=== PATIENT | male | born 1935 | race Caucasian/White ===

== ENCOUNTER 2017-10-16 15:34 | Emergency (ER) | payer MEDICARE ==
--- NOTE | 2017-10-16 15:56 | EDM.PDOC ---
ED HPI GENERAL MEDICAL PROBLEM - General Chief Complaint: Abdominal Pain Stated Complaint: abdominal pain Time Seen by Provider: 10/16/17 15:45 Source of Information: Reports: Patient, [facility]way Records (Limited), Other ( Limited records from [facility] [place]). Denies: Old Records History Limitations: Reports: Altered Mental Status - History of Present Illness INITIAL COMMENTS - FREE TEXT/NARRATIVE: The patient was brought to the emergency room via wheelchair from [facility] [place] after brief evaluation in that clinic. He was evaluated by SHWETA Stout, from [facility] [place] in [place], who is requesting further emergency room evaluation secondary to suspected bowel obstruction. The patient is an extremely poor historian secondary to his baseline organic brain syndrome, which is stable by history. He apparently has not had a bowel movement for about 3 days with previous nonspecific abdominal pain, which he currently denies? No apparent recent history of chest pain, heart flutter, dizziness, orthostasis, or other anginal-type symptoms. No recent history of heartburn, nausea, diarrhea, melena , gross hematochezia, or any food intolerance, including fatty foods, etc.. The patient also denies any recent fever, cough, wheezing, dyspnea, etc.. Onset: Gradual Duration: Day(s): (3 days?), Getting Worse Location: Reports: Abdomen. Denies: Head, Face, Neck, Chest, Back, Pelvis, Radiates to Quality: Reports: Same as Previous Episode Severity: Mild Improves with: Reports: None Worsens with: Reports: None Context: Reports: Other (As above). Denies: Sick Contact Associated Symptoms: Reports: Confusion (Stable baseline as above). 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: Other (see below) (None) Abdomen Pain Score (Numeric/FACES): 1 - Related Data Allergies Allergy/AdvReac Type Severity Reaction Status Date / Time No Known Allergies Allergy Verified 10/16/17 15:36 Home Meds: Home Meds Acetaminophen [Tylenol] 2 tab PO ASDIRECTED PRN 10/16/17 [History] Bisacodyl [Dulcolax] 5 mg PO ASDIRECTED PRN 10/16/17 [History] Cyanocobalamin (Vitamin B12) [Vitamin B13] 2 tab PO DAILY 10/16/17 [History] Dextran 70/Hypromellose [Artificial Tears] 1 each OP BID 10/16/17 [History] Dextran 70/Hypromellose/PF [Artificial Tears Drops] 1 each OP ASDIRECTED PRN 08/29 [History] Furosemide [Lasix] 20 mg PO DAILY 10/16/17 [History] Loperamide HCl [Imodium A-D] 2 mg PO ASDIRECTED PRN 10/16/17 [History] Memantine HCl [Namenda] 5 mg PO BID 10/16/17 [History] Multivitamin [Daily Multiple Vitamin] 1 tab PO DAILY 10/16/17 [History] Non-Formulary Medication [NF Drug] 30 ml PO Q12HR PRN 10/16/17 [History] Potassium Chloride [Klor-Con 10] 1 tab PO BID 10/16/17 [History] Sertraline [Zoloft] 2 tab PO DAILY 10/16/17 [History] buPROPion [buPROPion XL] 150 mg PO DAILY 10/16/17 [History] Past Medical History Cardiovascular History: Reports: Hypertension, Other (See Below) Other Cardiovascular History: Orthostatic hypotension Respiratory History: Reports: COPD, Intubation, Previous, Other (See Below). Denies: Intubation, Difficult Other Respiratory History: Radius history of pulmonary nodules in the right upper lobe 2 in in size between 1.3 and 1.5 cm. Gastrointestinal History: Reports: Chronic Constipation, Colon Polyp, Diverticulosis, Jaundice, Other (See Below) Other Gastrointestinal History: History of nonspecific jaundice Genitourinary History: Reports: BPH, Chronic Renal Insuffiency, Diabetic Nephropathy, Retention, Urinary, Urinary Incontinence, UTI, Recurrent Musculoskeletal History: Reports: Arthritis, Back Pain, Chronic, Osteoarthritis , Osteoporosis Neurological History: Reports: Alzheimers Disease, CVA, Other (See Below) Other Neuro History: Organic brain syndromevascular dementiamoderate. Nontraumatic cerebral hemorrhage/CVA. Psychiatric History: Reports: Anxiety, Depression, Emotional Problems Endocrine/Metabolic History: Reports: Diabetes, Type II, Obesity/BMI 30+. 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 - Infectious Disease History Infectious Disease History: Reports: MRSA - Past Surgical History HEENT Surgical History: Reports: Oral Surgery, Other (See Below) Other HEENT Surgeries/Procedures: Complete teeth extraction Musculoskeletal Surgical History: Reports: Knee Replacement Social & Family History - Family History Family Medical History: Unobtainable - Tobacco Use Smoking Status *Q: Unknown Ever Smoked - Living Situation & Occupation Living situation: Reports: Extended Care Facility ([facility]) ED ROS GENERAL - Review of Systems Review Of Systems: Unable To Obtain ED EXAM, GI/ABD - Physical Exam Exam: See Below Exam Limited By: Altered Mental Status General Appearance: Alert, No Apparent Distress Eyes: Right: Normal Appearance (No nystagmus. Patient is wearing glasses.), Bilateral: EOMI (PERRLA) Ears: Normal External Exam, Normal Canal, Hearing Grossly Normal, Normal TMs Nose: Normal Inspection, Normal Mucosa, No Blood Throat/Mouth: Normal Lips, Normal Gums, Normal Oropharynx, Normal Voice, No Airway Compromise. No: Normal Teeth (Complete dentures uppers and lowers), Dysphagia, Perioral Cyanosis Head: Atraumatic, Normocephalic. No: Facial Swelling, Facial Tenderness, Sinus Tenderness Neck: Supple, Non-Tender, Full Range of Motion, Carotid Bruit (Bilateral carotid bruitsmild). No: Lymphadenopathy (L), Lymphadenopathy (R), Thyromegaly Respiratory/Chest: No Respiratory Distress, Lungs Clear, Normal Breath Sounds, No Accessory Muscle Use, Chest Non-Tender. No: Pleural Rub, Retractions Cardiovascular: Normal Peripheral Pulses, Regular Rate, Rhythm, No Edema, No Gallop, No JVD, No Murmur, No Rub. No: Gallop/S3, Gallop/S4, Friction Rub GI/Abdominal Exam: No Abnormal Bruit, No Mass, Pelvis Stable, Distended ( Moderate), Tender (Mild diffuse palpation pain), Abnormal Bowel Sounds ( Moderate diffuse increased bowel sounds high-pitched in nature). No: Guarding, Rebound, Hernia (Male) Exam: Deferred Rectal (Males) Exam: Normal Rectal Tone, BPH (Moderate), Heme - Stool, Hemorrhoids (Grade 2 internal/external with moderate perirectal dermatitis/ erythema), Tenderness (No Eric space tenderness). No: Fecal Impaction ( Limited stool in rectal vault) Back Exam: Normal Inspection, Full Range of Motion. No: CVA Tenderness (L), CVA Tenderness (R), Muscle Spasm Extremities: Normal Inspection, Normal Range of Motion, Non-Tender, No Pedal Edema, Normal Capillary Refill. No: Evi's Sign Neurological: Alert, Normal Reflexes (Negative Babinski's), No Motor/Sensory Deficits, Confused (Stable moderate) Psychiatric: Normal Affect, Normal Mood Skin Exam: Erythema (Re: Rectal as above). No: Diaphoretic, Lymphangitis, Wound /Incision Lymphatic: No Adenopathy Course - Vital Signs Last Recorded V/S: Last Vital Signs Temp 36.3 C 10/16/17 17:24 Pulse 59 L 10/16/17 19:02 Resp 16 10/16/17 19:02 BP 157/63 H 10/16/17 19:02 Pulse Ox 95 10/16/17 19:02 Vital Signs - 24 hr 10/16/17 10/16/17 10/16/17 15:40 15:45 17:24 Temperature [ 36.4 C 36.6 C 36.3 C Oral] Pulse, 60 57 L 58 L Peripheral [ Left Pulse Oximetry] Respiratory 18 18 18 Rate Blood Pressure [Left Upper Arm ] Blood Pressure 149/71 H 168/70 H 156/70 H [Right Upper Arm] O2 Sat by Pulse 92 L 94 L 95 Oximetry 10/16/17 19:02 Temperature [ Oral] Pulse, 59 L Peripheral [ Left Pulse Oximetry] Respiratory 16 Rate Blood Pressure 157/63 H [Left Upper Arm ] Blood Pressure [Right Upper Arm] O2 Sat by Pulse 95 Oximetry - Orders/Labs/Meds Orders: Active Orders 24 hr Category Date Time Status Cardiac Monitoring [RC] . DIRECTED Care 10/16/17 19:15 Active Peripheral IV Care [RC] . DIRECTED Care 10/16/17 17:39 Active Abdomen Pelvis w Cont [CT] Stat Exams 10/16/17 15:56 Taken OCCULT BLOOD DIAGNOSTIC [OP] Stat Lab 10/16/17 16:24 Ordered Lactated Ringers [Ringers, Lactated] 1,000 ml Med 10/16/17 19:30 Active IV ASDIRECTED Sodium Chloride 0.9% [Saline Flush] Med 10/16/17 17:39 Active 10 ml FLUSH ASDIRECTED PRN cefTRIAXone [Rocephin] 1 gm Med 10/16/17 17:45 Active Sodium Chloride 0.9% [Normal Saline] 100 ml IV Q12H metroNIDAZOLE/Normal Saline [Flagyl 500 MG in NS 100 ML Med 10/16/17 17:45 Active ] 500 mg Premix Bag 1 bag IV Q8H Peripheral IV Insertion Adult [OM.PC] Routine Oth 10/16/17 17:39 Ordered Resuscitation Status Routine Resus Stat 10/16/17 19:08 Ordered Medication Orders Ceftriaxone Sodium 1 gm/ (Sodium Chloride) 100 mls @ 200 mls/hr IV Q12H LEONOR Last Admin: 10/16/17 18:35 Dose: 200 mls/hr Metronidazole 500 mg/ Premix 100 mls @ 100 mls/hr IV Q8H LEONOR Last Admin: 10/16/17 19:14 Dose: 100 mls/hr Lactated Ringer's (Ringers, Lactated) 1,000 mls @ 100 mls/hr IV ASDIRECTED LEONOR Last Admin: 10/16/17 20:16 Dose: 100 mls/hr Sodium Chloride (Saline Flush) 10 ml FLUSH ASDIRECTED PRN PRN Reason: Keep Vein Open Last Admin: 10/16/17 20:18 Dose: 10 ml Admin: 10/16/17 19:15 Dose: 10 ml Admin: 10/16/17 18:36 Dose: 10 ml Admin: 10/16/17 18:29 Dose: 10 ml Labs: Laboratory Tests 10/16/17 Range/Units 13:50 Amylase 35 (25-115) U/L Lipase 171 (73-393) U/L CBC ordered by [facility] normal with WBCs 6.6, hemoglobin 12.5, MCV 89.9, and platelets of 167. Comprehensive metabolic panel ordered by [facility] [place] was also normal with exception of elevated random glucose of 122, BUN 16, and creatinine of 1.24 with normal sodium of 138 and potassium of 3.9. Microbiology 10/16/17 16:24 Stool Occult Blood (ESTUARDO) - Final Stool / Feces NEGATIVE OCCULT BLOOD Meds: Medications Generic Name Dose Route Start Last Admin Trade Name Freq PRN Reason Stop Dose Admin Ceftriaxone Sodium 1 gm/ 100 mls @ 200 mls/hr 10/16/17 17:45 10/16/17 18:35 Sodium Chloride IV 200 mls/hr Q12H LEONOR Administration Metronidazole 500 mg/ Premix 100 mls @ 100 mls/hr 10/16/17 17:45 10/16/17 19: 14 IV 100 mls/hr Q8H LEONOR Administration Lactated Ringer's 1,000 mls @ 100 mls/hr 10/16/17 19:30 10/16/17 20:16 Ringers, Lactated IV 100 mls/hr ASDIRECTED LEONOR Administration Sodium Chloride 10 ml 10/16/17 17:39 10/16/17 20:18 Saline Flush FLUSH 10 ml ASDIRECTED PRN Administration Keep Vein Open Discontinued Medications Generic Name Dose Route Start Last Admin Trade Name Zackaryq PRN Reason Stop Dose Admin Iopamidol 100 ml 10/16/17 17:30 10/16/17 18:28 Isovue-300 (61%) IVPUSH 10/16/17 17:31 100 ml ONETIME ONE Administration - Radiology Interpretation Free Text/Narrative:: radiation monitor shows heart rate in the high 50s to 60s with no ectopy or arrhythmia X-ray report of dominant will x-rays, flat and upright, which were ordered by [facility] [place], shows evidence of significant dilated sigmoid colon with multiple air- fluid levels consistent with obstruction and possible volvulus with recommended CT. No evidence of free air despite my initial suspicions during my initial evaluation. Telephone consultation at 18:55 hours with the radiology department at [facility] in [place]. Preliminary verbal report of CT scan of the abdomen and pelvis with both IV and oral contrast. CT scan confirms volvulus with severe secondary obstruction, however no free air, etc. Incidental finding of new 2.3 cm in diameter pulmonary nodule in the right middle lobe. CT Results Date: 10/16/17 CT Results Time: 18:53 Departure - Departure Time of Disposition: 20:55 Disposition: DC/Tfer to Acute Hospital 02 Condition: Poor Clinical Impression: Confusion, Chronic renal insufficiency, stage III (moderate), Vitamin B 12 deficiency, Mixed anxiety depressive disorder, Pulmonary nodules, Need for comfort care Hypertension Qualifiers: Hypertension type: essential hypertension Qualified Code(s): I10 - Essential ( primary) hypertension Bowel obstruction Qualifiers: Intestinal obstruction type: unspecified Intestinal obstruction extent: partial Qualified Code(s): K56.600 - Partial intestinal obstruction, unspecified as to cause Osteoarthritis Qualifiers: Osteoarthritis location: multiple joints Osteoarthritis type: primary Qualified Code(s): M15.0 - Primary generalized (osteo)arthritis Diabetes mellitus Qualifiers: Diabetes mellitus type: type 2 Diabetes mellitus residential insulin use: without residential use Diabetes mellitus complication status: with kidney complications Diabetes mellitus complication detail: with chronic kidney disease Chronic kidney disease stage: stage 3 (moderate) Qualified Code(s): E11.22 - Type 2 diabetes mellitus with diabetic chronic kidney disease CVA (cerebral vascular accident) Qualifiers: CVA mechanism: other Qualified Code(s): I63.8 - Other cerebral infarction - Discharge Information Referrals: Akua Evans NP [Primary Care Provider] - Forms: ED Department Discharge, Interfacility Transfer EMTALA - Problem List & Annotations (1) Bowel obstruction SNOMED Code(s): 85849272 Code(s): K56.609 - UNSP INTESTNL OBST, UNSP TO PARTIAL VERSUS COMPLETE OBST Status: Acute Priority: High Current Visit: Yes Onset Date: ~ Annotation/Comment:: Volvulus of severe bowel obstruction by CT scan as above. Initial telephone consultation with the patient's cousin, guardian, and POA, Ruba at [phone], at 19:00 hours obtaining permission for hospital transfer to [place] with his POA requesting transfer to [facility]. Subsequent telephone consultation at 19:05 and 19:20 hours with [facility] in [place] with , general surgeon, accepting the patient for direct admission, with no further treatment recommendations. Ambulance transfer with export documents clerk accompaniment. 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 Qualifiers: CVA mechanism: other Qualified Code(s): I63.8 - Other cerebral infarction (3) Chronic renal insufficiency, stage III (moderate) SNOMED Code(s): 661088612 Code(s): N18.3 - CHRONIC KIDNEY DISEASE, STAGE 3 (MODERATE) Status: Chronic Priority: Medium Current Visit: Yes Annotation/Comment:: Continue to observe closely with known diabetic nephropathy (4) Confusion SNOMED Code(s): 661030060 Code(s): R41.0 - DISORIENTATION, UNSPECIFIED Status: Chronic Priority: Medium Current Visit: Yes Annotation/Comment:: Stable by history (5) Diabetes mellitus SNOMED Code(s): 78275873 Code(s): E11.9 - TYPE 2 DIABETES MELLITUS WITHOUT COMPLICATIONS Status: Chronic Priority: Medium Current Visit: Yes Annotation/Comment:: Continue to observe closely by accepting providers and regular physicians. Qualifiers: Diabetes mellitus type: type 2 Diabetes mellitus child care assistant insulin use: without residential use Diabetes mellitus complication status: with kidney complications Diabetes mellitus complication detail: with chronic kidney disease Chronic kidney disease stage: stage 3 (moderate) Qualified Code(s): E11.22 - Type 2 diabetes mellitus with diabetic chronic kidney disease; N18.3 - Chronic kidney disease, stage 3 (moderate) (6) Hypertension SNOMED Code(s): 32107063 Code(s): I10 - ESSENTIAL (PRIMARY) HYPERTENSION Status: Chronic Priority : Medium Current Visit: Yes Annotation/Comment:: Blood Pressures stable in the emergency room. Qualifiers: Hypertension type: essential hypertension Qualified Code(s): I10 - Essential (primary) hypertension (7) Osteoarthritis SNOMED Code(s): 365523909 Code(s): M19.90 - UNSPECIFIED OSTEOARTHRITIS, UNSPECIFIED SITE Status: Chronic Priority: Medium Current Visit: Yes Annotation/Comment:: Stable by history Qualifiers: Osteoarthritis location: multiple joints Osteoarthritis type: primary Qualified Code(s): M15.0 - Primary generalized (osteo)arthritis (8) Vitamin B 12 deficiency SNOMED Code(s): 521516565 Code(s): E53.8 - DEFICIENCY OF OTHER SPECIFIED B GROUP VITAMINS Status: Chronic Priority: Medium Current Visit: Yes Annotation/Comment:: Currently under therapy (9) Mixed anxiety depressive disorder SNOMED Code(s): 614125309 Code(s): F41.8 - OTHER SPECIFIED ANXIETY DISORDERS Status: Chronic Priority: Medium Current Visit: Yes Annotation/Comment:: Stable by history (10) Need for comfort care SNOMED Code(s): 622111667 Code(s): XRI4449 - Status: Chronic Priority: Medium Current Visit: Yes Annotation/Comment:: Note code status of the patient confirmed today with his POA as above. No aggressive measures including only limited CPR, limited intubation, and limited electrocardioversion. (11) Pulmonary nodules SNOMED Code(s): 022765589 Code(s): R91.8 - OTHER NONSPECIFIC ABNORMAL FINDING OF LUNG FIELD Status: Acute Priority: High Current Visit: Yes Annotation/Comment:: Progressive pulmonary nodules by CT scan today as above. Per his POA no further aggressive workup or treatment at this time. Long-term prognosis poor. Consider possibility of metastatic disease with unknown primary, etc. - Problem List Review Problem List Initiated/Reviewed/Updated: Yes - My Orders Last 24 Hours: My Active Orders 10/16/17 15:56 Abdomen Pelvis w Cont [CT] Stat 10/16/17 16:24 OCCULT BLOOD DIAGNOSTIC [OP] Stat 10/16/17 17:39 Peripheral IV Care [RC] . DIRECTED Sodium Chloride 0.9% [Saline Flush] 10 ml FLUSH ASDIRECTED PRN Peripheral IV Insertion Adult [OM.PC] Routine 10/16/17 17:45 cefTRIAXone [Rocephin] 1 gm Sodium Chloride 0.9% [Normal Saline] 100 ml IV Q12H metroNIDAZOLE/Normal Saline [Flagyl 500 MG in NS 100 ML] 500 mg Premix Bag 1 bag IV Q8H 10/16/17 19:08 Resuscitation Status Routine 10/16/17 19:15 Cardiac Monitoring [RC] . DIRECTED 10/16/17 19:30 Lactated Ringers [Ringers, Lactated] 1,000 ml IV ASDIRECTED - Assessment/Plan Last 24 Hours: My Active Orders 10/16/17 15:56 Abdomen Pelvis w Cont [CT] Stat 10/16/17 16:24 OCCULT BLOOD DIAGNOSTIC [OP] Stat 10/16/17 17:39 Peripheral IV Care [RC] . DIRECTED Sodium Chloride 0.9% [Saline Flush] 10 ml FLUSH ASDIRECTED PRN Peripheral IV Insertion Adult [OM.PC] Routine 10/16/17 17:45 cefTRIAXone [Rocephin] 1 gm Sodium Chloride 0.9% [Normal Saline] 100 ml IV Q12H metroNIDAZOLE/Normal Saline [Flagyl 500 MG in NS 100 ML] 500 mg Premix Bag 1 bag IV Q8H 10/16/17 19:08 Resuscitation Status Routine 10/16/17 19:15 Cardiac Monitoring [RC] . DIRECTED 10/16/17 19:30 Lactated Ringers [Ringers, Lactated] 1,000 ml IV ASDIRECTED Assessment:: As above Plan: As above. Extensive precautions were given to the patient and his POA, who are in agreement with the treatment plan. Ambulance transfer with export documents clerk accompaniment.
[2017-10-16] MEDS ORDERED: Iopamidol 612 MG/ML 100 ML Bottle IVPUSH ONE (17:30)
[2017-10-16] MEDS ORDERED: metroNIDAZOLE/Normal Saline 500 MG in Premix Bag 1 BAG IV SCH (17:45)
[2017-10-16] MEDS ORDERED: cefTRIAXone 1 GM in Sodium Chloride 0.9% 100 ML IV SCH (17:45)
[2017-10-16] MEDS: Sodium Chloride 0.9% 10 ML Syringe FLUSH PRN ×4 (18:29→20:18)
[2017-10-16 19:04] VITALS: BP 157/63
[2017-10-16] MEDS ORDERED: Lactated Ringers 1,000 ML IV SCH (19:30)
== END 2017-10-16 20:55 ==
LOC: LL.ED 15:34 → MERGE 15:34 → LL.ED 20:55
DX: I12.9 Hypertensive chronic kidney disease with stage 1 through stage 4 chronic kidney disease, or unspecified chronic kidney disease (principal); N18.3 Chronic kidney disease, stage 3 (moderate); F41.8 Other specified anxiety disorders; K56.600 Partial intestinal obstruction, unspecified as to cause; M15.0 Primary generalized (osteo)arthritis; I63.8 Other cerebral infarction; E53.8 Deficiency of other specified B group vitamins; R91.8 Other nonspecific abnormal finding of lung field; E11.21 Type 2 diabetes mellitus with diabetic nephropathy; E11.22 Type 2 diabetes mellitus with diabetic chronic kidney disease; Z79.899 Other long term (current) drug therapy
CPT/HCPCS: 36415; 74177; 82150; 82272; 83690; 96361; 96365; 96367; 99285; J0696; J7050; J7120; Q9967

== ENCOUNTER 2018-08-18 22:17 | Emergency (ER) | payer MEDICARE ==
[2018-08-18] MEDS ORDERED: Lidocaine 2% with EPINEPHrine 1:100,000 20 ML MDV INJECT ONE (23:15)
[2018-08-18] MEDS ORDERED: Bacitracin/Neomycin/Polymyxin B Oint 0.9 GM U/D Packet TOP ONE (23:15)
--- NOTE | 2018-08-18 23:24 | EDM.PDOC ---
ED HPI GENERAL MEDICAL PROBLEM - General Chief Complaint: Laceration Stated Complaint: Laceration Time Seen by Provider: 08/18/18 22:53 Source of Information: Reports: Patient, Other ([facility] staff) History Limitations: Reports: Other (memory impairment) - History of Present Illness INITIAL COMMENTS - FREE TEXT/NARRATIVE: Laceration of lower leg. Lives at [place]. Has saddle in room and managed to have saddle slide off saddle rack and it fell against his leg causing laceration. No other injuries/complaints. - Related Data Allergies Allergy/AdvReac Type Severity Reaction Status Date / Time hydralazine Allergy Cannot Verified 08/19/18 00:02 Remember oxycodone Allergy Cannot Verified 08/19/18 00:02 Remember methiolate Allergy Unknown Rash Uncoded 08/19/18 00:02 Home Meds: Home Meds Acetaminophen 650 mg PO Q4H PRN 08/19/18 [History] Bisacodyl [Dulcolax] 5 mg PO DAILY PRN 08/19/18 [History] Cephalexin [Keflex] 500 mg PO Q8H #21 capsule 08/19/18 [Rx] [place] Tar [Curly-Gel Tar] 1 applic TOP WEEKLY 08/19/18 [History] Cyanocobalamin (Vitamin B-12) [B-12 Dots] 2 tab PO DAILY 08/19/18 [History] Furosemide [Lasix] 20 mg PO BID 08/19/18 [History] Melatonin/Pyridoxine HCl (B6) [Melatonin 5 mg Tablet] 5 mg PO BEDTIME 08/19/18 [ History] OLANZapine [Olanzapine] 2.5 mg PO DAILY 08/19/18 [History] OLANZapine [Olanzapine] 10 mg PO BEDTIME 08/19/18 [History] Polyvinyl Alcohol [Liquitears] 1 drop EYEBOTH BID 08/19/18 [History] Polyvinyl Alcohol [Liquitears] 1 drop EYEBOTH Q4H PRN 08/19/18 [History] Potassium Chloride 2 tab PO DAILY 08/19/18 [History] Sertraline [Zoloft] 100 mg PO DAILY 08/19/18 [History] Past Medical History HEENT History: Reports: None Cardiovascular History: Reports: High Cholesterol, Hypertension, Other (See Below) Other Cardiovascular History: Orthostatic hypotension Respiratory History: Reports: COPD, Intubation, Previous, None, Other (See Below ) Other Respiratory History: Radius history of pulmonary nodules in the right upper lobe 2 in in size between 1.3 and 1.5 cm. 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 Immunologic History: Reports: None Oncologic (Cancer) History: Reports: None Dermatologic History: Reports: None - Infectious Disease History Infectious Disease History: Reports: MRSA, None - Past Surgical History HEENT Surgical History: Reports: Other (See Below), Oral Surgery Musculoskeletal Surgical History: Reports: Knee Replacement, Other (See Below) Social & Family History - Family History Family Medical History: Unobtainable Respiratory: Reports: PE - Caffeine Use Caffeine Use: Reports: Coffee - Living Situation & Occupation Living situation: Reports: , Extended Care Facility, Other Occupation: Retired ED ROS GENERAL - Review of Systems Review Of Systems: ROS reveals no pertinent complaints other than HPI. ED EXAM, SKIN/RASH Exam: See Below Exam Limited By: No Limitations General Appearance: Alert, No Apparent Distress Head: Atraumatic, Normocephalic Neck: Supple Respiratory/Chest: No Respiratory Distress Extremities: Other (has changes to both lower legs suggestive of peripheral vascular disease. Laceration/skin tear noted anterior lower right ellis. ) Neurological: Alert, Other (pleasant, chatty. Knows how he was injured. No pain complaint. ) Psychiatric: Normal Affect, Normal Mood Skin: Warm, Dry ED SKIN PROCEDURES - Laceration/Wound Repair Right Lower Anterior Leg Lac/Wound length In cm: 13 (shaped like vertically oriented candy cane, top portion is skin tear, became deeper towards long side of laceration) Appearance: Superficial, Subcutaneous, Irregular, Clean Anesthetic Type: Local Local Anesthesia - Lidocaine (Xylocaine): 2% with EPI Local Anesthetic Volume: Other (10) Skin Prep: Saline Exploration/Debridement/Repair: Wound Explored, In a Bloodless Field, Explored to Base, No Foreign Material Found Closed with: Sutures Suture Size: 4-0 # of Sutures: 13 (combination of mattress sutures and interrupted) Suture Type: Nylon, Interrupted, Mattress Drain Placement: No Sterile Dressing Applied: Nurse Right Lower Anterior Distal Leg Lac/Wound length In cm: 7 Appearance: Subcutaneous, Linear, Clean Anesthetic Type: Other (see previous wound note for anesthesia used, this wound ran just adjacent to other wound) Skin Prep: Saline Exploration/Debridement/Repair: Wound Explored, In a Bloodless Field, Explored to Base, No Foreign Material Found Closed with: Sutures Suture Size: 4-0 Suture Type: Nylon Course - Orders/Labs/Meds Meds: Medications Discontinued Medications Generic Name Dose Route Start Last Admin Trade Name Karine PRN Reason Stop Dose Admin Lidocaine/Epinephrine 20 ml 08/18/18 23:15 Xylocaine 2% With Epinephrine 1:100,000 INJECT 08/18/18 23:16 ONETIME ONE Neomycin/Polymyxin/Bacitracin 1 each 08/18/18 23:15 Triple Antibiotic Oint TOP 08/18/18 23:16 ONETIME ONE - Re-Assessments/Exams Free Text/Narrative Re-Assessment/Exam: 08/19/18 00:24 Lacerations repaired. Unable to get skin to meet well superior portion of wound due to tearing of the thinner portions when placed under tension. Will place patient on antibiotics given poor peripheral circulation and higher chance of wound infection. Will request residential to check on patient's tetanus status with his clinic tomorrow. Wound check needs to be scheduled for Friday. Departure - Departure Time of Disposition: 00:27 Disposition: DC/Tfer to [facility] 03 Condition: Good Clinical Impression: Leg laceration Qualifiers: Encounter type: initial encounter Laterality: right Qualified Code(s): S81.811A - Laceration without foreign body, right lower leg, initial encounter - Discharge Information *PRESCRIPTION DRUG MONITORING PROGRAM REVIEWED*: Not Applicable *COPY OF PRESCRIPTION DRUG MONITORING REPORT IN PATIENT CONSTANCE: Not Applicable Prescriptions: Cephalexin [Keflex] 500 mg PO Q8H #21 capsule Referrals: Sheets-Brigette Nixon MD [Primary Care Provider] - Forms: ED Department Discharge Additional Instructions: Daily dressing changes. Cleanse wound and apply triple antibiotic ointment to site prior to rebandaging. Make appointment for patient to have wound check at clinic Friday unless residential rounds are performed that day. Also check with clinic to see if patient's tetanus status is up to date. Follow up as needed if signs of infection are noted.
[2018-08-19 02:13] VITALS: BP 119/68
== END 2018-08-19 01:00 ==
LOC: LL.ED 22:17
DX: S81.811A Laceration without foreign body, right lower leg, initial encounter (principal); E78.00 Pure hypercholesterolemia, unspecified; J44.9 Chronic obstructive pulmonary disease, unspecified; N18.9 Chronic kidney disease, unspecified; I12.0 Hypertensive chronic kidney disease with stage 5 chronic kidney disease or end stage renal disease; E11.21 Type 2 diabetes mellitus with diabetic nephropathy; F41.9 Anxiety disorder, unspecified; F32.9 Major depressive disorder, single episode, unspecified; Z79.899 Other long term (current) drug therapy; W20.8XXA Other cause of strike by thrown, projected or falling object, initial encounter
CPT/HCPCS: 12005; 13121; 13122; 99282-25; 99283

== ENCOUNTER 2018-12-07 07:38 | Emergency (ER) | payer MEDICARE, OTHER ==
[2018-12-07] MEDS ORDERED: Sodium Chloride 0.9% 10 ML Syringe FLUSH PRN (07:41)
[2018-12-07 08:30] LABS: CHLORIDE,CL 100 mmol/L (98-107); SODIUM,NA 138 mmol/L (136-145)
--- NOTE | 2018-12-07 08:41 | EDM.PDOC ---
ED HPI GENERAL MEDICAL PROBLEM - General Chief Complaint: Lower Extremity Injury/Pain Stated Complaint: left leg pain Time Seen by Provider: 12/07/18 08:02 Source of Information: Reports: Other ([facility] staff) History Limitations: Reports: Other (dementia) - History of Present Illness INITIAL COMMENTS - FREE TEXT/NARRATIVE: Patient sent here from [facility] to have left lower leg evaluated. Noted to have increased redness/swelling/pain this morning. No reported fevers or other changes/symptoms per [facility] staff. Has had MRSA in past. Has had previous cellulitis in past on right side. No mention of previous DVTs. Staff familiar with patient note that he is much quieter than usual. Patient only complains of pain when being moved and if someone/something touches left leg. - Related Data Allergies Allergy/AdvReac Type Severity Reaction Status Date / Time hydralazine Allergy Cannot Verified 08/19/18 00:02 Remember oxycodone Allergy Cannot Verified 08/19/18 00:02 Remember methiolate Allergy Unknown Rash Uncoded 08/19/18 00:02 Home Meds: Home Meds Acetaminophen 650 mg PO Q4H PRN 08/19/18 [History] Bisacodyl [Dulcolax] 5 mg PO DAILY PRN 08/19/18 [History] [place] Tar [Curly-Gel Tar] 1 applic TOP WEEKLY 08/19/18 [History] Cyanocobalamin (Vitamin B-12) [B-12 Dots] 2 tab PO DAILY 08/19/18 [History] Furosemide [Lasix] 20 mg PO BID 08/19/18 [History] Melatonin/Pyridoxine HCl (B6) [Melatonin 5 mg Tablet] 5 mg PO BEDTIME 08/19/18 [ History] OLANZapine [Olanzapine] 2.5 mg PO DAILY 08/19/18 [History] OLANZapine [Olanzapine] 10 mg PO BEDTIME 08/19/18 [History] Polyvinyl Alcohol [Liquitears] 1 drop EYEBOTH BID 08/19/18 [History] Polyvinyl Alcohol [Liquitears] 1 drop EYEBOTH Q4H PRN 08/19/18 [History] Potassium Chloride 2 tab PO DAILY 08/19/18 [History] Sertraline [Zoloft] 100 mg PO DAILY 08/19/18 [History] Mineral Oil/Petrolatum [Aquaphor Healing Oint] 1 applic TOP Q12HR PRN 12/07/18 [ History] Povidone-Iodine [Betadine] 1 applic TOP DAILY 12/07/18 [History] Past Medical History HEENT History: Reports: Other (See Below) Other HEENT History: Has chronic dry eyes Cardiovascular History: Reports: High Cholesterol, Hypertension, Other (See Below) Other Cardiovascular History: Orthostatic hypotension Respiratory History: Reports: COPD, Intubation, Previous, None, Other (See Below ) Other Respiratory History: Radius history of pulmonary nodules in the right upper lobe 2 in in size between 1.3 and 1.5 cm. 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 Immunologic History: Reports: None Oncologic (Cancer) History: Reports: None Dermatologic History: Reports: None - Infectious Disease History Infectious Disease History: Reports: MRSA, None - Past Surgical History HEENT Surgical History: Reports: Other (See Below), Oral Surgery GI Surgical History: Reports: Colonoscopy, EGD Social & Family History - Family History Family Medical History: Unobtainable Respiratory: Reports: PE - Caffeine Use Caffeine Use: Reports: Coffee - Living Situation & Occupation Living situation: Reports: , Extended Care Facility, Other Occupation: Retired Review of Systems - Review of Systems Review Of Systems: ROS reveals no pertinent complaints other than HPI. Constitutional: Denies: Chills, Diaphoresis, Fever Respiratory: Denies: Shortness of Breath, Cough, Sputum GI/Abdominal: Denies: Abdominal Pain, Diarrhea, Nausea, Vomiting Musculoskeletal: Reports: Leg Pain Skin: Reports: Bruising, Erythema Neurological: Reports: Other (decreased level of activity) ED EXAM, GENERAL - Physical Exam Exam: See Below Exam Limited By: Physical Impairment General Appearance: Other (Keeps eyes closed. Does answer questions. ) Eye Exam: Bilateral Eye: EOMI Nose: No: Nasal Deformity, Nasal Swelling, Nasal Drainage Throat/Mouth: Normal Voice, No Airway Compromise Head: Atraumatic, Normocephalic Neck: Supple Respiratory/Chest: No Respiratory Distress, Lungs Clear, Normal Breath Sounds, No Accessory Muscle Use Cardiovascular: Regular Rate, Rhythm, No Murmur GI/Abdominal: Soft, Non-Tender (Male) Exam: Deferred Rectal (Males) Exam: Deferred Extremities: Pedal Edema, Increased Warmth, Redness Neurological: Inattentive Psychiatric: Normal Affect, Normal Mood Skin Exam: Ecchymosis, Erythema, Increased Warmth, Other (left lower leg) Course - Vital Signs Last Recorded V/S: Last Vital Signs Temp 36.8 C 12/07/18 08:00 Pulse 66 12/07/18 08:21 Resp 18 12/07/18 08:21 BP 145/60 H 12/07/18 08:21 Pulse Ox 98 12/07/18 08:21 - Orders/Labs/Meds Orders: Active Orders 24 hr Category Date Time Status Sodium Chloride 0.9% [Saline Flush] Med 12/07/18 07:41 Active 10 ml FLUSH ASDIRECTED PRN Saline Lock Insert [OM.PC] Routine Oth 12/07/18 07:41 Ordered Medication Orders Sodium Chloride (Saline Flush) 10 ml FLUSH ASDIRECTED PRN PRN Reason: Keep Vein Open Labs: Laboratory Tests 12/07/18 12/07/18 12/07/18 Range/Units 07:55 07:55 07:55 WBC 8.2 (4.0-10.2) K/uL RBC 3.79 L (4.33-5.41) M/uL Hgb 11.2 L (13.1-16.8) g/dL Hct 33.3 L (39.0-49.0) % MCV 87.9 (84.0-98.0) fL MCH 29.6 (28.2-33.3) pg MCHC 33.6 (31.7-36.0) g/dL RDW 16.0 H (11.2-14.1) % Plt Count 206 (150-350) K/uL Neut % (Auto) 63.0 (45.0-80.0) % Lymph % (Auto) 19.3 (10.0-50.0) % [place] % (Auto) 15.7 H (2.0-14.0) % Eos % (Auto) 0.9 (0.0-5.0) % Baso % (Auto) 1.1 (0.0-2.0) % Neut # (Auto) 5.15 (1.40-7.00) K/uL Lymph # (Auto) 1.58 (0.50-3.50) K/uL [place] # (Auto) 1.28 H (0.00-1.00) K/uL Eos # (Auto) 0.07 (0.00-0.50) K/uL Baso # (Auto) 0.09 (0.00-0.20) K/uL D-Dimer, Quantitative 4240 H (0-400) ng/mL Sodium 138 (136-145) mmol/L Potassium 3.5 (3.5-5.1) mmol/L Chloride 100 (98-107) mmol/L Carbon Dioxide 28.8 (21.0-32.0) mmol/L BUN 20 H (7-18) mg/dL Creatinine 0.85 (0.51-1.17) mg/dL Est Cr Clr Drug Dosing TNP Estimated GFR (MDRD) > 60 mL/min Glucose 142 H (74-106) mg/dL Lactic Acid (0.4-2.0) mmol/L Calcium 8.9 (8.5-10.1) mg/dL Magnesium 2.0 (1.8-2.4) mg/dL Total Bilirubin 0.8 (0.2-1.0) mg/dL AST 16 (15-37) U/L ALT 18 (12-78) U/L Alkaline Phosphatase 99 (46-116) IU/L Total Protein 8.2 (6.4-8.2) g/dL Albumin 3.4 (3.4-5.0) g/dL 12/07/18 Range/Units 07:55 WBC (4.0-10.2) K/uL RBC (4.33-5.41) M/uL Hgb (13.1-16.8) g/dL Hct (39.0-49.0) % MCV (84.0-98.0) fL MCH (28.2-33.3) pg MCHC (31.7-36.0) g/dL RDW (11.2-14.1) % Plt Count (150-350) K/uL Neut % (Auto) (45.0-80.0) % Lymph % (Auto) (10.0-50.0) % [place] % (Auto) (2.0-14.0) % Eos % (Auto) (0.0-5.0) % Baso % (Auto) (0.0-2.0) % Neut # (Auto) (1.40-7.00) K/uL Lymph # (Auto) (0.50-3.50) K/uL [place] # (Auto) (0.00-1.00) K/uL Eos # (Auto) (0.00-0.50) K/uL Baso # (Auto) (0.00-0.20) K/uL D-Dimer, Quantitative (0-400) ng/mL Sodium (136-145) mmol/L Potassium (3.5-5.1) mmol/L Chloride (98-107) mmol/L Carbon Dioxide (21.0-32.0) mmol/L BUN (7-18) mg/dL Creatinine (0.51-1.17) mg/dL Est Cr Clr Drug Dosing Estimated GFR (MDRD) mL/min Glucose (74-106) mg/dL Lactic Acid 2.2 H (0.4-2.0) mmol/L Calcium (8.5-10.1) mg/dL Magnesium (1.8-2.4) mg/dL Total Bilirubin (0.2-1.0) mg/dL AST (15-37) U/L ALT (12-78) U/L Alkaline Phosphatase (46-116) IU/L Total Protein (6.4-8.2) g/dL Albumin (3.4-5.0) g/dL Meds: Medications Generic Name Dose Route Start Last Admin Trade Name Freq PRN Reason Stop Dose Admin Sodium Chloride 10 ml 12/07/18 07:41 Saline Flush FLUSH ASDIRECTED PRN Keep Vein Open - Re-Assessments/Exams Free Text/Narrative Re-Assessment/Exam: 12/07/18 08:46 Vital signs stable. Afebrile. Normal WBC. Lactic acid 2.2. DDimer significantly elevated. Cellulitis suspected, cannot rule out DVT. Ultrasound not available today on site. Discussed patient with from [facility]. Will transfer patient to their facility in order to be able to complete the workup and initiate treatment decisions. Patient's guardian contacted and is aware of the ER visit and transfer. Departure - Departure Time of Disposition: 08:36 Disposition: DC/Tfer to Acute Hospital 02 Condition: Good Clinical Impression: Redness and swelling of lower leg - Discharge Information Referrals: Brigette Smith MD [Primary Care Provider] - Forms: ED Department Discharge - My Orders Last 24 Hours: My Active Orders 12/07/18 07:41 Sodium Chloride 0.9% [Saline Flush] 10 ml FLUSH ASDIRECTED PRN Saline Lock Insert [OM.PC] Routine - Assessment/Plan Last 24 Hours: My Active Orders 12/07/18 07:41 Sodium Chloride 0.9% [Saline Flush] 10 ml FLUSH ASDIRECTED PRN Saline Lock Insert [OM.PC] Routine
[2018-12-07 18:49] VITALS: BP 157/60
== END 2018-12-07 09:45 ==
LOC: LL.ED 07:38
DX: M79.81 Nontraumatic hematoma of soft tissue (principal); E78.00 Pure hypercholesterolemia, unspecified; I10 Essential (primary) hypertension; J44.9 Chronic obstructive pulmonary disease, unspecified; F41.9 Anxiety disorder, unspecified; F32.9 Major depressive disorder, single episode, unspecified; I12.9 Hypertensive chronic kidney disease with stage 1 through stage 4 chronic kidney disease, or unspecified chronic kidney disease; N18.9 Chronic kidney disease, unspecified; E11.22 Type 2 diabetes mellitus with diabetic chronic kidney disease; E11.21 Type 2 diabetes mellitus with diabetic nephropathy; G30.9 Alzheimer's disease, unspecified; F02.80 Dementia in other diseases classified elsewhere, unspecified severity, without behavioral disturbance, psychotic disturbance, mood disturbance, and anxiety; Z88.5 Allergy status to narcotic agent; Z88.8 Allergy status to other drugs, medicaments and biological substances; Z79.899 Other long term (current) drug therapy; Z86.73 Personal history of transient ischemic attack (TIA), and cerebral infarction without residual deficits; Z86.14 Personal history of Methicillin resistant Staphylococcus aureus infection
CPT/HCPCS: 36000; 36415; 80053; 83605; 83735; 85025; 85379; 99284

== ENCOUNTER 2018-12-12 11:45 | Emergency (ER) | payer MEDICARE, OTHER ==
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
[2018-12-12] MEDS ORDERED: Sodium Chloride 0.9% 10 ML Syringe FLUSH PRN (12:27)
[2018-12-12 12:36] LABS: CHLORIDE,CL 102 mmol/L (98-107); SODIUM,NA 138 mmol/L (136-145)
[2018-12-12 14:03] VITALS: BP 146/57
== END 2018-12-12 13:49 ==
LOC: LL.ED 11:45
DX: S82.432A Displaced oblique fracture of shaft of left fibula, initial encounter for closed fracture (principal); S82.302A Unspecified fracture of lower end of left tibia, initial encounter for closed fracture; I13.0 Hypertensive heart and chronic kidney disease with heart failure and stage 1 through stage 4 chronic kidney disease, or unspecified chronic kidney disease; I50.9 Heart failure, unspecified; N18.3 Chronic kidney disease, stage 3 (moderate); E11.22 Type 2 diabetes mellitus with diabetic chronic kidney disease; M15.0 Primary generalized (osteo)arthritis; F41.8 Other specified anxiety disorders; D63.8 Anemia in other chronic diseases classified elsewhere; E88.09 Other disorders of plasma-protein metabolism, not elsewhere classified; R91.1 Solitary pulmonary nodule; E66.9 Obesity, unspecified; Z79.899 Other long term (current) drug therapy; Z88.8 Allergy status to other drugs, medicaments and biological substances; Z90.49 Acquired absence of other specified parts of digestive tract; X58.XXXA Exposure to other specified factors, initial encounter
CPT/HCPCS: 36000; 36415; 73590-LT; 80053; 83605; 85025; 85610; 85730; 87040; 99285-25

== ENCOUNTER 2019-01-08 20:00 | Emergency (ER) | payer MEDICARE ==
[2019-01-08] MEDS: Morphine 2 MG/ML Syringe IVPUSH ONE (20:57)
[2019-01-08] MEDS: Ondansetron 4 MG/2 ML SDV IVPUSH ONE (20:57)
[2019-01-08] MEDS: Sodium Chloride 0.9% 10 ML Syringe FLUSH PRN (20:57)
--- NOTE | 2019-01-08 21:04 | EDM.PDOC ---
ED HPI GENERAL MEDICAL PROBLEM - General Chief Complaint: General Stated Complaint: lethargy, drainage from ortho site Time Seen by Provider: 01/08/19 20:25 Source of Information: Reports: Other ([facility] staff) History Limitations: Reports: Altered Mental Status (cognitive impairment) - History of Present Illness INITIAL COMMENTS - FREE TEXT/NARRATIVE: Patient sent to ER for evaluation of generalized worsening condition. Recent finding of spiral fracture of tibia, also fracture of fibula. Mechanism of injury not specifically known to hospital, however there is an investigation ongoing at [facility] as to circumstances around injury. Sent to [facility] and patient received internal/external fixation procedure. Over last 24 hours, noted to have increased lethergy, poor appetite, and more sero-sang drainage to left heel. Blacking of tissue of heel also noted/ expanding. No fevers. Had lab work earlier today that showed normal WBC and lactic acid. Review of chart does not show that patient is currently on any antibiotics. - Related Data Allergies Allergy/AdvReac Type Severity Reaction Status Date / Time hydralazine Allergy Cannot Verified 01/08/19 20:54 Remember oxycodone Allergy Cannot Verified 01/08/19 20:54 Remember methiolate Allergy Unknown Rash Uncoded 01/08/19 20:54 Home Meds: Home Meds Acetaminophen 650 mg PO Q4H PRN MDD 3,000 mg in 24 Hrs 08/19/18 [History] Bisacodyl [Dulcolax] 5 mg PO DAILY PRN 08/19/18 [History] Eagle Tar [Curly-Gel Tar] 1 applic TOP WEEKLY 08/19/18 [History] Cyanocobalamin (Vitamin B-12) [B-12 Dots] 2 tab PO DAILY 08/19/18 [History] Furosemide [Lasix] 20 mg PO BID 08/19/18 [History] Melatonin/Pyridoxine HCl (B6) [Melatonin 5 mg Tablet] 5 mg PO BEDTIME 08/19/18 [ History] OLANZapine [Olanzapine] 2.5 mg PO DAILY 08/19/18 [History] OLANZapine [Olanzapine] 10 mg PO BEDTIME 08/19/18 [History] Polyvinyl Alcohol [Liquitears] 1 drop EYEBOTH BID 08/19/18 [History] Polyvinyl Alcohol [Liquitears] 1 drop EYEBOTH Q4H PRN 08/19/18 [History] Potassium Chloride 2 tab PO DAILY 08/19/18 [History] Sertraline [Zoloft] 100 mg PO DAILY 08/19/18 [History] Mineral Oil/Petrolatum [Aquaphor Healing Oint] 1 applic TOP Q12HR PRN 12/07/18 [ History] Povidone-Iodine [Betadine] 1 applic TOP DAILY 12/07/18 [History] Past Medical History HEENT History: Reports: Other (See Below) Other HEENT History: Has chronic dry eyes Cardiovascular History: Reports: Heart Failure, High Cholesterol, Hypertension, PVD, Other (See Below) Other Cardiovascular History: D-dimer elevation on 12/07/18 with negative workup. Orthostatic hypotension. Peripheral vascular disease by x-rays. 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 Gastrointestinal History: Reports: Bowel Obstruction, Cholelithiasis, Chronic Constipation, Colon Polyp, Diverticulosis, Jaundice, PUD, Other (See Below) Other Gastrointestinal History: Current colostomy. History of volvulus on . History of nonspecific jaundice possibly secondary to his cholelithiasis. Genitourinary History: Reports: BPH, Chronic Renal Insuffiency, Diabetic Nephropathy, Prostate Disorder, Retention, Urinary, Urinary Incontinence, UTI, Recurrent, Other (See Below) Other Genitourinary History: Stage 3 diabetic nephropathy. Bilateral renal cysts by CT scan. 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 Immunologic History: Reports: None Oncologic (Cancer) History: Reports: Other (See Below) Other Oncologic History: Unknown primary with right upper lobe pulmonary mass Dermatologic History: Reports: Venous Stasis Dermatitis - Infectious Disease History Infectious Disease History: Reports: MRSA - Past Surgical History HEENT Surgical History: Reports: Other (See Below), Oral Surgery Other HEENT Surgeries/Procedures: Complete teeth extraction with current denture therapy. GI Surgical History: Reports: Cholecystectomy, Colonoscopy, EGD, Other (See Below) Other GI Surgeries/Procedures: Open Cholecystectomy. Musculoskeletal Surgical History: Reports: Joint Replacement, Other (See Below) Other Musculoskeletal Surgeries/Procedures:: Bilateral total knee arthroplasty. - Past Imaging History Past Imaging History: Reports: CAT Scan (CT of the abdomen and pelvis on and 10/16/17. CT of the chest on 01/05/18 and 07/18/17.), Venous Doppler ( Negative venous Doppler studies of the left leg on 12/07/18) Social & Family History - Family History Family Medical History: Unobtainable Respiratory: Reports: PE - Tobacco Use Smoking Status *Q: Unknown Ever Smoked - Caffeine Use Caffeine Use: Reports: Coffee - Living Situation & Occupation Living situation: Reports: (1 son), Extended Care Facility (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) ED ROS GENERAL - Review of Systems Review Of Systems: Unable To Obtain (patient pleasantly confused, no specific complaints when asked.) ED EXAM, GENERAL - Physical Exam Exam: See Below Exam Limited By: No Limitations General Appearance: Other (awake, no apparent distress) Eye Exam: Bilateral Eye: EOMI, PERRL Nose: No: Nasal Deformity, Nasal Swelling, Nasal Drainage Throat/Mouth: Normal Lips, Normal Voice, No Airway Compromise Head: Atraumatic, Normocephalic Neck: Supple Respiratory/Chest: No Respiratory Distress, Lungs Clear, No Accessory Muscle Use Cardiovascular: Regular Rate, Rhythm, No Edema, No Murmur Peripheral Pulses: 0: Dorsalis Pedis (L) (unable to palpate but able to locate using Dopplar), Dorsalis Pedis (R) (located by Dopplar) GI/Abdominal: Soft, Non-Tender, No Distention (Male) Exam: Deferred Rectal (Males) Exam: Deferred Back Exam: No: Muscle Spasm Extremities: Other (Both lower legs show changes consistent with peripheral vascular disease. Left foot slighly more cool than right. External fixation rods in place. In heel on left where rods penatrate skin, the heel is noted to be blackened in color, with some thickened drainage emerging form wire's entry point. Some discoloration of toes/nails noted from surgical prep solution used at time of surgery. ) Neurological: Inattentive Psychiatric: Normal Affect, Normal Mood Skin Exam: Warm, Dry, Cool, Pallor (bilateral lower legs/feet) Course - Vital Signs Last Recorded V/S: Last Vital Signs Temp 36.6 C 01/08/19 20:03 Pulse 93 01/08/19 20:03 Resp 18 01/08/19 20:03 BP 122/48 L 01/08/19 20:03 Pulse Ox 94 L 01/08/19 20:03 - Orders/Labs/Meds Orders: Active Orders 24 hr Category Date Time Status Ankle Min 3V Lt [CR] Stat Exams 01/08/19 20:08 Taken Sodium Chloride 0.9% [Saline Flush] Med 01/08/19 20:13 Active 10 ml FLUSH ASDIRECTED PRN Saline Lock Insert [OM.PC] Routine Oth 01/08/19 20:13 Ordered Medication Orders Sodium Chloride (Saline Flush) 10 ml FLUSH ASDIRECTED PRN PRN Reason: Keep Vein Open Last Admin: 01/08/19 20:57 Dose: 10 ml Meds: Medications Generic Name Dose Route Start Last Admin Trade Name Freq PRN Reason Stop Dose Admin Sodium Chloride 10 ml 01/08/19 20:13 01/08/19 20:57 Saline Flush FLUSH 10 ml ASDIRECTED PRN Administration Keep Vein Open Discontinued Medications Generic Name Dose Route Start Last Admin Trade Name Freq PRN Reason Stop Dose Admin Morphine Sulfate 2 mg 01/08/19 20:42 01/08/19 20:57 Morphine IVPUSH 01/08/19 20:43 2 mg ONETIME ONE Administration Ondansetron HCl 4 mg 01/08/19 20:42 01/08/19 20:57 Zofran IVPUSH 01/08/19 20:43 4 mg ONETIME ONE Administration - Radiology Interpretation Free Text/Narrative:: Xray of injured leg obtained, pending review from Radiology. Copy sent to [facility] - Re-Assessments/Exams Free Text/Narrative Re-Assessment/Exam: 01/08/19 21:22 Given the blackened discoloration of the injured foot/drainage and overall increased lethargy, it was decided that pt would best benefit from transfer to [facility] where he could be re-evaluated by Ortho. Internal Med and ID also on site if needed. Call placed to [facility] and patient accepted by from ER. Arrangements for transfer made. Wound culture from earlier today is pending. Departure - Departure Time of Disposition: 21:24 Disposition: DC/Tfer to Acute Hospital 02 Condition: Fair Clinical Impression: Recent skin changes Closed fracture of distal end of left fibula and tibia Qualifiers: Encounter type: initial encounter Qualified Code(s): S82.302A - Unspecified fracture of lower end of left tibia, initial encounter for closed fracture - Discharge Information *PRESCRIPTION DRUG MONITORING PROGRAM REVIEWED*: Not Applicable *COPY OF PRESCRIPTION DRUG MONITORING REPORT IN PATIENT CONSTANCE: Not Applicable Referrals: Brigette Smith MD [Primary Care Provider] - Forms: ED Department Discharge - My Orders Last 24 Hours: My Active Orders 01/08/19 20:08 Ankle Min 3V Lt [CR] Stat 01/08/19 20:13 Sodium Chloride 0.9% [Saline Flush] 10 ml FLUSH ASDIRECTED PRN Saline Lock Insert [OM.PC] Routine - Assessment/Plan Last 24 Hours: My Active Orders 01/08/19 20:08 Ankle Min 3V Lt [CR] Stat 01/08/19 20:13 Sodium Chloride 0.9% [Saline Flush] 10 ml FLUSH ASDIRECTED PRN Saline Lock Insert [OM.PC] Routine
[2019-01-08 21:31] VITALS: BP 124/57; PULSE 51
== END 2019-01-08 21:30 ==
LOC: LL.ED 20:00
DX: S82.302A Unspecified fracture of lower end of left tibia, initial encounter for closed fracture (principal); R23.9 Unspecified skin changes; J44.9 Chronic obstructive pulmonary disease, unspecified; E11.22 Type 2 diabetes mellitus with diabetic chronic kidney disease; I12.9 Hypertensive chronic kidney disease with stage 1 through stage 4 chronic kidney disease, or unspecified chronic kidney disease; N18.9 Chronic kidney disease, unspecified; E11.21 Type 2 diabetes mellitus with diabetic nephropathy; G30.9 Alzheimer's disease, unspecified; F02.80 Dementia in other diseases classified elsewhere, unspecified severity, without behavioral disturbance, psychotic disturbance, mood disturbance, and anxiety; E66.9 Obesity, unspecified; F41.9 Anxiety disorder, unspecified; F32.9 Major depressive disorder, single episode, unspecified; E11.51 Type 2 diabetes mellitus with diabetic peripheral angiopathy without gangrene; Z88.8 Allergy status to other drugs, medicaments and biological substances; Z88.5 Allergy status to narcotic agent; Z86.73 Personal history of transient ischemic attack (TIA), and cerebral infarction without residual deficits; Z79.899 Other long term (current) drug therapy; Z90.49 Acquired absence of other specified parts of digestive tract; Z68.27 Body mass index [BMI] 27.0-27.9, adult; X58.XXXA Exposure to other specified factors, initial encounter
CPT/HCPCS: 73610-LT; 96374; 96375; 99285-25; J2270; J2405